=== PATIENT | male | born 1980 | race Caucasian/White ===

== ENCOUNTER 2018-04-01 21:31 | Emergency (ER) | payer BC ==
[2018-04-01 21:45] VITALS: BP 128/78
[2018-04-01] MEDS ORDERED: HYDROCODONE/ACETAMINOPHEN 5-325 MG TABLET PO ONE (23:57)
--- NOTE | 2018-04-02 00:34 | ER Document Report ---
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 Patient states that it felt like it was "under my ribs." The first thing that he was concerned about was his gastric bypass. He states that he has eaten since then, had a bowel movement that was normal, has no abdominal pain otherwise, no nausea or vomiting. TRAVEL OUTSIDE OF THE [place] IN LAST 30 DAYS: No - Related Data Allergies/Adverse Reactions: NSAIDS (Non-Steroidal Anti-Inflamma Adverse Reaction (Mild, Verified 04/01/18 23 :38) Past Medical History - General Information source: Patient - Social History Smoking Status: Never Smoker Frequency of alcohol use: None Drug Abuse: None Family History: Reviewed & Not Pertinent Patient has suicidal ideation: No Patient has homicidal ideation: No Renal/ Medical History: Denies: Hx Peritoneal Dialysis Past Surgical History: Reports: Hx Abdominal Surgery - gastric bypass Review of Systems - Review of Systems Gastrointestinal: See HPI Musculoskeletal: See HPI Physical Exam - Vital signs Vitals: Temp Pulse Resp BP Pulse Ox 97.9 F 49 L 16 128/78 H 99 04/01/18 21:43 04/01/18 21:43 04/01/18 21:43 04/01/18 21:43 04/01/18 21:43 - Notes Notes: PHYSICAL EXAMINATION: GENERAL: Uncomfortable appearing and in no acute distress. ABDOMEN: Soft, no tenderness. No guarding, no rebound Course - Vital Signs Vital signs: Temp Pulse Resp BP Pulse Ox 97.9 F 49 L 16 128/78 H 99 04/01/18 21:43 04/01/18 21:43 04/01/18 21:43 04/01/18 21:43 04/01/18 21:43 Discharge - Discharge Referrals: NATALIIA JOEL MD [Primary Care Provider] - Follow up as needed
--- NOTE | 2018-04-02 00:34 | RADIOLOGY REPORT (SQ) ---
EXAM DESCRIPTION: XR ABDOMEN 1 VIEW (KUB) COMPLETED DATE/TME: 04/01/2018 23:56 CLINICAL HISTORY: stretched back, felt sharp pain, gastric bypass COMPARISON: None. FINDINGS: Bowel: No dilated loops of large or small bowel. Peritoneum: No free intraperitoneal air identified. Solid organs: No definite organomegaly. Calcifications: No abnormal calcifications. Bones: No acute osseous abnormalities. Other: No additional findings. IMPRESSION: Nonobstructive bowel gas pattern.
--- NOTE | 2018-04-02 00:36 | RADIOLOGY REPORT (SQ) ---
EXAM DESCRIPTION: XR RIBS UNILATERAL WITH CHEST COMPLETED DATE/TME: 04/01/2018 23:56 CLINICAL HISTORY: 38 years, Male, stretched back, felt sharp pain, gastric bypass COMPARISON: None. FINDINGS: Single view of the chest with 2 views of the left ribs. Cardiomediastinal silhouette has normal size and contour. No consolidation, pneumothorax, or pleural effusion. Upper abdominal soft tissues unremarkable. No left rib fractures identified. IMPRESSION: No left rib fractures identified. 2011 [facility] [employer]- All Rights Reserved
[2018-04-02] MEDS ORDERED: CYCLOBENZAPRINE HCL 10 MG TABLET PO ONE (00:55)
--- NOTE | 2018-04-02 00:55 | ER Document Report ---
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 Patient states that it felt like it was "under my ribs." The first thing that he was concerned about was his gastric bypass. He states that he has eaten since then, had a bowel movement that was normal, has no abdominal pain otherwise, no nausea or vomiting. TRAVEL OUTSIDE OF THE [place] IN LAST 30 DAYS: No - Related Data Allergies/Adverse Reactions: NSAIDS (Non-Steroidal Anti-Inflamma Adverse Reaction (Mild, Verified 04/01/18 23 :38) Past Medical History - General Information source: Patient - Social History Smoking Status: Never Smoker Frequency of alcohol use: None Drug Abuse: None Family History: Reviewed & Not Pertinent Patient has suicidal ideation: No Patient has homicidal ideation: No Renal/ Medical History: Denies: Hx Peritoneal Dialysis Past Surgical History: Reports: Hx Abdominal Surgery - gastric bypass Review of Systems - Review of Systems Constitutional: No symptoms reported EENT: No symptoms reported Cardiovascular: No symptoms reported Respiratory: No symptoms reported Gastrointestinal: See HPI Genitourinary: No symptoms reported Male Genitourinary: No symptoms reported Musculoskeletal: See HPI Skin: No symptoms reported Hematologic/Lymphatic: No symptoms reported Neurological/Psychological: No symptoms reported Physical Exam - Vital signs Vitals: Temp Pulse Resp BP Pulse Ox 97.9 F 49 L 16 128/78 H 99 04/01/18 21:43 04/01/18 21:43 04/01/18 21:43 04/01/18 21:43 04/01/18 21:43 - Notes Notes: PHYSICAL EXAMINATION: GENERAL: Well-appearing and in no acute distress. HEAD: Atraumatic, normocephalic. EYES: Pupils equal round and reactive to light, extraocular movements intact, sclera anicteric, conjunctiva are normal. ENT: ear canals without erythema or foreign body, TMs pearly ivory with good bony landmarks, nares patent, oropharynx clear without exudates. Moist mucous membranes. NECK: Normal range of motion, supple without lymphadenopathy LUNGS: CTAB and equal. No wheezes rales or rhonchi. HEART: Regular rate and rhythm without murmurs ABDOMEN: Soft, no tenderness. No guarding, no rebound BACK: no vertebral tenderness, normal ROM GI/: no CVA tenderness EXTREMITIES: Normal range of motion, no pitting edema. No cyanosis. NEUROLOGICAL: Cranial nerves grossly intact. Normal sensory/motor exams. PSYCH: Normal mood, normal affect. SKIN: Warm, Dry, normal turgor, no rashes or lesions noted . Course - Re-evaluation Re-evalutation: 04/02/18 00:54 KUB and left ribs with PA chest negative for any acute pathology, show normal bowel gas pattern. - Vital Signs Vital signs: Temp Pulse Resp BP Pulse Ox 97.9 F 49 L 16 128/78 H 99 04/01/18 21:43 04/01/18 21:43 04/01/18 21:43 04/01/18 21:43 04/01/18 21:43 Discharge - Discharge Clinical Impression: Strain of abdominal wall Qualifiers: Encounter type: initial encounter Qualified Code(s): S39.011A - Strain of muscle, fascia and tendon of abdomen, initial encounter Condition: Stable Disposition: HOME, SELF-CARE Additional Instructions: Return immediately for any new or worsening symptoms. Follow up with primary care provider, call tomorrow to make followup appointment. Prescriptions: Cyclobenzaprine HCl [Flexeril 10 mg Tablet] 10 mg PO TIDP PRN #15 tab PRN Reason: Referrals: NATALIIA JOEL MD [Primary Care Provider] - Follow up as needed
== END 2018-04-02 01:16 | disposition home or self-care (01) ==
LOC: ER 21:31
DX: S39.011A Strain of muscle, fascia and tendon of abdomen, initial encounter (principal); R10.9 Unspecified abdominal pain; X58.XXXA Exposure to other specified factors, initial encounter; Z98.84 Bariatric surgery status; Z88.8 Allergy status to other drugs, medicaments and biological substances
CPT/HCPCS: 74018; 99284